=== PATIENT | female | born 1945 | race Caucasian/White ===

== ENCOUNTER 2019-04-02 12:21 | Emergency (ER) | payer MEDICARE ==
[~2019-04-02] VITALS: Ht 160 cm; Wt 62.7 kg
[2019-04-02 12:56] LABS: BASOPHILS % (AUTO) 0.6 % (0-1); EOSINOPHILS % (AUTO) 0.3 % (0-6); HEMATOCRIT 42.5 % (35.0-45.0); HEMOGLOBIN 14.4 g/dl (12.0-16.0); LYMPHOCYTES # (AUTO) 1.5 X10'3 (1.1-4.8); LYMPHOCYTES % (AUTO) 16.7 % (21-51); MEAN CORPUSCULAR HEMOGLOBIN 31.1 PG (27.0-31.0); MEAN CORPUSCULAR HGB CONC 33.9 g/dL (33.0-36.5); MEAN CORPUSCULAR VOLUME 91.7 FL (78-98); MEAN PLATELET VOLUME 8.7 FL (7.4-10.4); MONOCYTES # (AUTO) 0.5 X10'3 (0-0.9); MONOCYTES % (AUTO) 5.4 % (2-12); NEUTROPHILS # (AUTO) 6.7 X10'3 (1.8-7.7); PLATELET COUNT 285 X10'3 (140-440); RED BLOOD COUNT 4.63 X10'6 (4.20-5.60); RED CELL DISTRIBUTION WIDTH 12.3 % (11.5-14.5); WHITE BLOOD COUNT 8.7 X10'3 (4.5-11.0)
[2019-04-02 13:13] LABS: PARTIAL THROMBOPLASTIN TIME 27 SECONDS (22-32)
[2019-04-02 13:22] LABS: ALANINE AMINOTRANSFERASE 36 U/L (12-78); ALBUMIN 3.8 G/DL (3.4-5.0); ALBUMIN/GLOBULIN RATIO 0.9 (1.1-1.5); ALKALINE PHOSPHATASE 90 IU/L (46-116); ANION GAP 8 (8-16); ASPARTATE AMINO TRANSFERASE 36 U/L (10-37); BILIRUBIN,TOTAL 0.4 MG/DL (0.1-1.0); BLOOD UREA NITROGEN 32 MG/DL (7-18); BUN/CREATININE RATIO 35.6 (6.6-38.0); CALCIUM 10.1 MG/DL (8.5-10.1); CHLORIDE 106 MMOL/L (99-107); GLUCOSE 126 MG/DL (70-104); POTASSIUM 4.3 MMOL/L (3.5-5.1); SODIUM 144 MMOL/L (135-145); TOTAL CARBON DIOXIDE 29.6 MMOL/L (24-32); TOTAL PROTEIN 8.1 G/DL (6.4-8.2); eGFR 61 ML/MIN
[2019-04-02] MEDS ORDERED: ondansetron/PF 4mg/2ml inj IV ONE (14:05)
[2019-04-02] MEDS ORDERED: normal saline 1000ML IV soln IVB ONE ×2 (14:05)
[2019-04-02] MEDS ORDERED: pantoprazole 40 MG vial IV ONE (14:05)
--- NOTE | 2019-04-02 14:17 | NUR ---
PT MEDICATED ORDERED BY THE PROVIDER,PT DAUGHTER AND DOG AT BEDSIDE .IV FLUID INFUSING PER MD ORDERS.
[2019-04-02 16:01] LABS: CLARITY,URINE SLIGHTLY CLOUDY (Clear); COLOR,URINE YELLOW (Yellow); GLUCOSE, URINE NEGATIVE (Neg); KETONES,URINE TRACE mg/dl (Neg); LEUKOCYTE ESTERASE ,URINE TRACE (Neg); NITRITES, URINE NEGATIVE (Neg); OCCULT BLOOD,URINE NEGATIVE (Neg); PROTEIN,URINE NEGATIVE (Neg); UROBILINOGEN,URINE 0.2 E.U/dL (0.2-1.0)
[2019-04-02 16:03] LABS: UA COLLECTION TYPE OTHER
[2019-04-02 16:07] LABS: BACTERIA,URINE NONE SEEN /HPF (Neg); MUCUS STRANDS FEW /LPF (Neg); RBC,URINE NONE SEEN /HPF (0-2); SQUAMOUS EPITHELIAL CELL,UR FEW /LPF (FEW)
[2019-04-02 16:08] LABS: AMORPHOUS PHOSPHATES 1+
[2019-04-02 16:31] VITALS: BP 163/77
== END 2019-04-02 16:33 | disposition home or self-care (01) ==
LOC: ER 12:22
DX: K52.9 Noninfective gastroenteritis and colitis, unspecified (principal); I10 Essential (primary) hypertension; G89.29 Other chronic pain; R79.1 Abnormal coagulation profile
CPT/HCPCS: 36415; 71045; 80053; 81001; 84484; 85025; 85610; 85730; 87088; 93005; 96361; 96374; 96375; 99284; C9113; J2405; J7030; J7040

== ENCOUNTER 2019-12-21 11:42 | Day surgery (SDC) | payer MEDICARE, OTHER ==
[2019-12-21] VITALS (13 sets, daily range): BP systolic 126–167; BP diastolic 53–66
[~2019-12-21] VITALS: Ht 160 cm; Wt 69.2 kg
[2019-12-21] MEDS ORDERED: normal saline 1,000 ML IV SCH (12:05)
[2019-12-21] MEDS ORDERED: diphenhydrAMINE 25mg capsule PO PRN (12:05)
[2019-12-21] MEDS ORDERED: MORP10SY PO (12:10)
[2019-12-21] MEDS ORDERED: GABA600T13 PO (12:10)
[2019-12-21] MEDS ORDERED: AMLO5TAB PO (12:10)
[2019-12-21] MEDS ORDERED: FAMO40TA58 PO (12:10)
[2019-12-21] MEDS ORDERED: LOSA50TA3 PO (12:10)
[2019-12-21 13:46] LABS: BASOPHILS # (AUTO) 0.1 X10'3 (0-0.2); BASOPHILS % (AUTO) 0.6 % (0-1); EOSINOPHILS # (AUTO) 0.3 X10'3 (0-0.9); EOSINOPHILS % (AUTO) 3.3 % (0-6); HEMATOCRIT 40.9 % (35.0-45.0); HEMOGLOBIN 13.3 g/dl (12.0-16.0); LYMPHOCYTES # (AUTO) 1.9 X10'3 (1.1-4.8); LYMPHOCYTES % (AUTO) 23.3 % (21-51); MEAN CORPUSCULAR HGB CONC 32.6 g/dL (33.0-36.5); MEAN CORPUSCULAR VOLUME 88.9 FL (78-98); MEAN PLATELET VOLUME 8.4 FL (7.4-10.4); MONOCYTES # (AUTO) 0.7 X10'3 (0-0.9); MONOCYTES % (AUTO) 8.5 % (2-12); NEUTROPHILS # (AUTO) 5.3 X10'3 (1.8-7.7); NEUTROPHILS % (AUTO) 64.3 % (42-75); PLATELET COUNT 238 X10'3 (140-440); RED CELL DISTRIBUTION WIDTH 13.3 % (11.5-14.5); WHITE BLOOD COUNT 8.3 X10'3 (4.5-11.0)
[2019-12-21 13:54] LABS: ALBUMIN 3.4 G/DL (3.4-5.0); ANION GAP 7 (8-16); BLOOD UREA NITROGEN 42 MG/DL (7-18); BUN/CREATININE RATIO 48.3 (6.6-38.0); CALCIUM 9.4 MG/DL (8.5-10.1); CHLORIDE 106 MMOL/L (99-107); CREATININE 0.87 MG/DL (0.40-0.90); GLUCOSE 109 MG/DL (70-104); MAGNESIUM 2.3 MG/DL (1.5-2.4); POTASSIUM 4.4 MMOL/L (3.5-5.1); SODIUM 139 MMOL/L (135-145); TOTAL CARBON DIOXIDE 26.5 MMOL/L (24-32); eGFR 63 ML/MIN
[2019-12-21] MEDS ORDERED: LIDOcaine 1% (10mg/ml)w/preservative injection 20ml MDV ONE (14:32)
[2019-12-21] MEDS ORDERED: iohexol 350 MG/ML 50ML vial IV ONE (14:32)
[2019-12-21] MEDS ORDERED: fentaNYL/PF 50MCG/1 ML 2ML syringe ONE (14:32)
[2019-12-21] MEDS ORDERED: midazolam 2 mg/2 ml injection ONE (14:32)
[2019-12-21] MEDS ORDERED: heparin 1,000unit/ml 10ml vial 10 ML ONE (14:32)
[2019-12-21] MEDS ORDERED: iohexol 350MG/ML 100ml bottle IV ONE (14:32)
[2019-12-21] MEDS ORDERED: hydrALAZINE 20mg/ml inj. IV ONE (15:12)
[2019-12-21] MEDS ORDERED: HYDROcodone/acetaminophen 10/325mg tab PO PRN (15:50)
[2019-12-21] MEDS ORDERED: proCHLORperazine 10 MG/2 ml inj IV PRN (15:50)
[2019-12-21] MEDS ORDERED: HYDROcodone/acetaminophen 5mg/325mg tablet PO PRN (15:50)
[2019-12-21] MEDS ORDERED: ondansetron/PF 4mg/2ml inj IV PRN (15:50)
== END 2019-12-21 18:35 | disposition home or self-care (01) ==
LOC: SSTAY O 11:42
PROVIDERS: ATTEND Internal Medicine Cardiovascular Disease
DX: R94.39 Abnormal result of other cardiovascular function study (principal); I25.10 Atherosclerotic heart disease of native coronary artery without angina pectoris; I10 Essential (primary) hypertension; G47.30 Sleep apnea, unspecified; G89.4 Chronic pain syndrome; Z86.12 Personal history of poliomyelitis; Z98.890 Other specified postprocedural states; Z96.659 Presence of unspecified artificial knee joint; Z87.891 Personal history of nicotine dependence; Z82.49 Family history of ischemic heart disease and other diseases of the circulatory system
CPT/HCPCS: 80048; 83735; 85025; 93458; 93571; 99152; 99153; C1760; C1769; C1894; J0360; J1644; J2001; J2250; J3010; J7030; Q0163; Q9967; A4620; A6258